=== PATIENT | female | born 2000 | race Caucasian/White ===

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

== ENCOUNTER 2021-01-06 14:16 | Emergency (ER) | payer OTHER, MEDICAID, SELFPAY ==
[2021-01-06 14:17] VITALS: BP 115/71; PULSE 79; RESP 15; TEMP 36.6; O2SAT 98; BMI 23.9
[2021-01-06 15:04] LABS: Absolute Lymphocyte Count 1.56 X10^3/uL (0.83-4.51); Absolute Neutrophil Count 2.7 X10^3/uL (2.0-7.7); Basophil# 0.03 X10^3/uL; Basophil% 0.6 % (0-1); Eosinophil# 0.03 X10^3/uL; Eosinophils% 0.6 % (0-5); Hematocrit 40.8 % (37-47); Hemoglobin 13.1 g/dL (12.0-15.0); Lymphocyte # 1.56 X10^3/ul (0.83-4.51); Lymphocyte % 32.6 % (19-41); Mean Corp Hgb Conc 32.1 g/dL (32-36); Mean Corpuscular Hgb 27.9 pg (27.0-32.0); Mean Platelet Vol. 10.3 fl (6.2-12.0); Monocyte# 0.44 X10^3/uL; Monocyte% 9.2 % (0-10); NRBC Flagged by Analyzer 0 % (0-5); Neutrophil # 2.72 X10^3/uL (2.7-7.7); Neutrophil % 56.8 % (47-70); Platelet Count 316 K/mm3 (150-450); RBC Distribution Width CV 14.5 % (11.6-14.6); RBC Distribution Width SD 46.3 fl (35.1-43.9); Red Blood Count 4.69 M/mm3 (4.2-5.4); White Blood Count 4.8 K/mm3 (4.4-11.0)
[2021-01-06 15:31] LABS: ALB/GLOB Ratio 1.2 RATIO (0.9-2.4); AST(SGOT) 17 U/L (15-37); Alanine Aminotransfer ALT/SGPT 24 U/L (13-56); Albumin, Serum 3.9 g/dL (3.2-5.0); Alkaline Phosphatase 48 U/L (45-117); Anion Gap 5 (5-15); BUN 13 mg/dL (7-18); BUN/Creat Ratio 16.3 RATIO (10-20); Chloride 109 mmol/L (98-107); EST Glomerular Filtration Rate 98 mL/min (>60); Est Glom Filt Rate - Afr Amer 119 mL/min (>60); Estimated Creatinine Clearance 97.67 ml/min; Globulin 3.3 g/dL (2.2-4.2); Glucose 89 mg/dL (74-106); Lipase 101 U/L (73-393); Protein, Total 7.2 g/dL (6.4-8.2); Sodium Level 140 mmol/L (136-145)
[2021-01-06 15:35] LABS: Bacteria 0 SEEN /hpf (None Seen); Color, Urine Straw (Yellow); Glucose, Dipstick Normal (Normal); Ketone-Dipstick Negative (Negative); Leukocyte Esterase-Dipstick Negative /ul (Negative); Nitrite-Dipstick Negative (Negative); Occult Blood-Urine Negative /ul (Negative); Protein-Dipstick 15 mg/dl (Negative); Red Blood Cells-Urine 0 SEEN /hpf (0-5); Urine Bilirubin Dipstick Negative (Negative); Urine Clarity Clear (Clear); Urine Urobilinogen Normal (Normal)
[2021-01-06 15:43] LABS: Internal QC Validated? YES +Cl - CLEAR BKGD; Pregnancy, Serum, hCG Quali. NEGATIVE Negative
[2021-01-06 15:44] LABS: Squamous Epithelial Cells - UA 0-5 SEEN /hpf (5-10); White Blood Cells 0-5 SEEN /hpf (0-5)
--- NOTE | 2021-01-06 15:44 | ED.VISSUMM ---
- ER Visit Summary Date of Service: 01/06/21 Chief Complaint: Abdominal pain History of Present Illness: The patient is a 20 F with no primary care physician. She reports she has abdominal pain began 3 days ago. Is gradually gotten worse. It is a continuous pain that waxes and wane. She describes it as a sharp, cramping, aching that is 10 of 10 at worst and 7-10 currently. Is worsened by movement or any food. She states that the food worsens it within 5 to 10 minutes. Is relieved by nothing. She denies any spicy or fatty food intolerance specifically. Patient reports has been nausea and vomited 2-3 times. No blood in her emesis. She reports she had 3 episodes of diarrhea. No blood in her stools or black tarry stools. No dysuria or frequency. Last menstrual period was 1 month ago. No vaginal bleeding or discharge. Patient denies sick contacts. Has not been camping out of the country. No possible bad food exposure. Does drink well water, but others at home do as well and they are not ill. No recent antibiotic use. Physical Examination: Vitals: Stable. Afebrile. General: Well-nourished and well-developed. Head: Normocephalic atraumatic. Neck: Supple, no lymphadenopathy. No JVD. Nontender. Cardiovascular: Regular rate and rhythm. No murmurs. Respiratory: No respiratory distress. Clear to auscultation bilaterally. Abdominal: Soft, mild diffuse tenderness palpation moderate epigastric tenderness, nondistended, normal bowel sounds. No guarding, rebound, or peritoneal signs. Back: Nontender. Extremities: Nontender, no edema. Skin: Normal color, no rash. Neurologic: Alert and oriented ?3. Cranial nerves II through XII are intact. Normal strength and sensation. Psych: Normal affect. Test Results: CBC is normal. Chem-7 shows a chloride of 109. LFTs are normal. Lipase is normal. test is negative. Urinalysis is negative for infection. Emergency Department Course and Treatment: Patient had an IV placed. She was given Toradol and Zofran IV. She was given a GI cocktail p.o. She is resting comfortably. Treatment Plan: Patient will be discharged with Zofran. [facility] 3 to 5 days if not improving. Return to the emergency department for any worsening symptoms. Disposition: To home in improved and stable condition. Impression: 1. Abdominal pain, uncertain cause. This note was generated with Dispatch dictation software. It may contain incorrect words, spelling, and punctuation that were not noted in review of the chart prior to signing ED Disposition - Plan for ED Patient: Instructions: ED Abdominal Pain Unkn Cause Fem Prescriptions: Ondansetron [Zofran Odt] 4 mg PO Q8H PRN PRN #10 tablet PRN Reason: Nausea Referrals: Madelyn Power [NON-STAFF] - 3-5 Days if not improving
[2021-01-06 15:45] LABS: Mucous, Urine RARE /hpf (<or=2+)
[2021-01-06] MEDS: Ketorolac 15 MG/ML Vial IV (15:47)
[2021-01-06] MEDS: Ondansetron 4 MG/2 ML Vial IV (15:48)
[2021-01-06] MEDS: Mag Hydrox/Al Hydrox/Simeth 30 ML UDC PO (15:48)
[2021-01-06 16:05] VITALS: PULSE 80; RESP 17; O2SAT 97
== END 2021-01-06 16:06 | disposition home or self-care (01) ==
PROVIDERS: Emergency Provider Emergency Medicine
DX: R10.9 Unspecified abdominal pain (principal); R11.2 Nausea with vomiting, unspecified; K21.9 Gastro-esophageal reflux disease without esophagitis; F32.9 Major depressive disorder, single episode, unspecified; Z79.899 Other long term (current) drug therapy
CPT/HCPCS: 80053; 81001; 83690; 84703; 85025; 96374; 96375; 99283; A4216; J2405

== ENCOUNTER → 2021-01-08 11:53 | Outpatient (CLI) | payer OTHER, MEDICAID, SELFPAY ==
[2021-01-06 14:17] VITALS: BMI 23.9
--- NOTE | 2021-01-08 11:56 | US_ITS ---
STUDY: ABDOMINAL ULTRASOUND REASON FOR EXAM: Female, 20 years old. PERSISTENT GENERALIZED ABD PAIN TECHNIQUE: Transabdominal ultrasound was performed with real-time and static luke scale imaging. TECHNICAL QUALITY: Adequate. COMPARISON: None. FINDINGS: Liver: The liver measures 14.5 cm. There is normal echogenicity of the liver. The bile ducts are within normal limits. There is hepatic color flow. The direction of portal flow is hepatopetal. There is no demonstrated mass lesion. Portal vein measurement: Gallbladder: Normal distended gallbladder. The gallbladder wall measures 2 mm. There is a negative sonographic Hart''s sign. There is no pericholecystic fluid. There are no gallstones. Common Bile Duct (C.B.D.): The common bile duct measures 2 mm. Pancreas: Normal size of the head, body and tail of the pancreas. There is normal echogenicity of the pancreas. There is no demonstrated pancreatic mass or cyst. Spleen: Normal size of the spleen. The spleen measures 9.6 cm. Right Kidney: Normal size of the right kidney. The right kidney measures 10.4 cm. Normal renal cortex. The right cortex measures 1.3 cm. There is no demonstrated renal mass or cyst. There is no right hydronephrosis. Left Kidney: Normal size of the left kidney. The left kidney measures 10.6 cm. Normal renal cortex. The left cortex measures 1.2 cm. There is no demonstrated renal mass or cyst. There is no left hydronephrosis. Aorta: No abdominal aortic aneurysm. I.V.C.: The IVC is patent. There is no ascites. US/Abdomen Complete IMPRESSION: Normal abdominal ultrasound examination. Electronically Signed: Mich Huntley MD at 13:40 EDT Tel , Service support ,
== END ==
PROVIDERS: PCP Pediatrics; Referring Provider Pediatrics; Visit Provider Pediatrics
DX: R10.84 Generalized abdominal pain (principal)
CPT/HCPCS: 76700

== ENCOUNTER 2021-01-08 12:53 | Emergency (ER) | payer OTHER, MEDICAID, SELFPAY ==
[2021-01-08 12:54] VITALS: BP 138/74; PULSE 79; RESP 16; TEMP 35.8; O2SAT 97; BMI 24.9
--- NOTE | 2021-01-08 13:36 | CT_ITS ---
STUDY: CT ABDOMEN AND PELVIS WITH CONTRAST REASON FOR EXAM: Female, 20 years old. abd pain -- IV PO Contrast RADIATION DOSAGE (If Supplied By Facility): CTDIvol = ( 13.58 ) mGy, DLP = ( 536.95 ) mGycm TECHNIQUE: Transaxial images were obtained from the dome of the diaphragm to the symphysis pubis with oral contrast. Oral and amp; IV Gastrografin and amp; 100mL Isovue-300 was administered. Sagittal and coronal images were reconstructed. Individualized dose optimization techniques were used for this CT. COMPARISON: 03/02/2020 FINDINGS: The visualized lung bases are unremarkable. The visualized portions of the heart are within normal limits. Normal liver. The gallbladder is contracted. Normal spleen. Normal pancreas. Normal bilateral adrenal glands. Normal right kidney. Normal left kidney. Normal visualized stomach. Normal small intestine. Normal colon. The appendix is visualized and appears normal. Normal abdominal aorta. Normal inferior vena cava. Normal retroperitoneum. Normal urinary bladder. Normal abdominal wall. Normal osseous structures. CT/Abdomen/Pelvis WITH Contrast IMPRESSION: Normal enhanced CT of the abdomen and pelvis. Electronically Signed: Mich Huntley MD at 16:15 EDT Tel , Service support ,
[2021-01-08] MEDS: Morphine 4 MG/ML Syringe IV ×2 (14:01→16:30)
[2021-01-08] MEDS: Ondansetron 4 MG/2 ML Vial IV (14:02)
[2021-01-08 14:03] LABS: Bacteria 0 SEEN /hpf (None Seen); Mucous, Urine 0 SEEN /hpf (<or=2+); Red Blood Cells-Urine 0 SEEN /hpf (0-5); White Blood Cells 0 SEEN /hpf (0-5)
[2021-01-08 14:03] LABS: Absolute Lymphocyte Count 2.17 X10^3/uL (0.83-4.51); Absolute Neutrophil Count 2.7 X10^3/uL (2.0-7.7); Basophil# 0.02 X10^3/uL; Basophil% 0.4 % (0-1); Eosinophil# 0.06 X10^3/uL; Eosinophils% 1.1 % (0-5); Hematocrit 45.3 % (37-47); Hemoglobin 14.7 g/dL (12.0-15.0); Lymphocyte # 2.17 X10^3/ul (0.83-4.51); Lymphocyte % 40.6 % (19-41); Mean Corp Hgb Conc 32.5 g/dL (32-36); Mean Corpuscular Hgb 28.4 pg (27.0-32.0); Mean Corpuscular Volume 87.5 fL (81-99); Mean Platelet Vol. 9.9 fl (6.2-12.0); Monocyte# 0.41 X10^3/uL; Monocyte% 7.7 % (0-10); NRBC Flagged by Analyzer 0 % (0-5); Neutrophil # 2.68 X10^3/uL (2.7-7.7); Platelet Count 345 K/mm3 (150-450); RBC Distribution Width CV 14.1 % (11.6-14.6); RBC Distribution Width SD 45.3 fl (35.1-43.9); Red Blood Count 5.18 M/mm3 (4.2-5.4); White Blood Count 5.4 K/mm3 (4.4-11.0)
[2021-01-08] MEDS: 0.9% Normal Saline 1,000 ML 1000 ML IV (14:03)
--- NOTE | 2021-01-08 14:14 | RAD_ITS ---
STUDY: X-RAY CHEST REASON FOR EXAM: Female, 20 years old. cough TECHNIQUE: Single AP portable view of the chest. COMPARISON: 03/03/2017 FINDINGS: The lungs are clear and expanded. There is no demonstrated pleural abnormality. Normal size heart. Normal mediastinum and brandon. Normal visualized pulmonary arteries. Normal visualized aortic arch and descending thoracic aorta. Normal visualized thoracic spine. Normal visualized ribs, clavicles, and shoulders. There is no demonstrated abnormality of the visualized soft tissue structures of the upper abdomen. RAD/Chest 1 View (Portable) IMPRESSION: Normal x-ray examination of the chest. Electronically Signed: Mich Huntley MD at 14:27 EDT Tel , Service support ,
[2021-01-08 14:16] LABS: Internal QC Validated? YES +Cl - CLEAR BKGD; Pregnancy, Urine Negative Negative
[2021-01-08 14:17] LABS: Color, Urine Yellow (Yellow); Glucose, Dipstick Normal (Normal); Ketone-Dipstick Negative (Negative); Leukocyte Esterase-Dipstick Negative /ul (Negative); Nitrite-Dipstick Negative (Negative); Occult Blood-Urine Negative /ul (Negative); Protein-Dipstick Negative (Negative); Specific Gravity, Urine 1.005 (1.002-1.030); Urine Bilirubin Dipstick Negative (Negative); Urine Clarity Clear (Clear); Urine Urobilinogen Normal (Normal)
[2021-01-08 14:17] LABS: ALB/GLOB Ratio 1.2 RATIO (0.9-2.4); AST(SGOT) 21 U/L (15-37); Alanine Aminotransfer ALT/SGPT 29 U/L (13-56); Albumin, Serum 4.4 g/dL (3.2-5.0); Alkaline Phosphatase 54 U/L (45-117); Anion Gap 6 (5-15); BUN 7 mg/dL (7-18); BUN/Creat Ratio 8.5 RATIO (10-20); Calcium,Total 9.4 mg/dL (8.5-10.1); Chloride 107 mmol/L (98-107); Creatinine, Serum 0.83 mg/dL (0.55-1.02); EST Glomerular Filtration Rate 94 mL/min (>60); Est Glom Filt Rate - Afr Amer 114 mL/min (>60); Estimated Creatinine Clearance 94.14 ml/min; Globulin 3.8 g/dL (2.2-4.2); Glucose 85 mg/dL (74-106); Lipase 81 U/L (73-393); Potassium 4.1 mmol/L (3.5-5.1); Protein, Total 8.2 g/dL (6.4-8.2); Sodium Level 141 mmol/L (136-145)
[2021-01-08 14:28] LABS: Squamous Epithelial Cells - UA 0-5 SEEN /hpf (5-10)
[2021-01-08 15:00] VITALS: BP 131/63; PULSE 74; RESP 18; O2SAT 98
--- NOTE | 2021-01-08 16:07 | ED.VIS.GEN ---
History of Present Illness Chief Complaint: Abd Pain Informant: Patient Onset: Days - 2 Narrative: Patient presents to ED after leaving radiology department for abdominal ultrasound ordered by her goat farmer yesterday. She was seen in the ED 2 days ago for nausea vomiting diarrhea along with abdominal pain. She reports after evaluation her nausea vomiting was improved however still had abdominal pain for which she saw her doctor yesterday. Ultrasound was ordered today. Reports after ultrasound she had increasing pain that is unbearable. Denies any current vomiting. No current diarrhea. States nausea with pain. States there is family history of Crohn's disease in her grandmother however reports was told is not the type that can be passed down genetically. She denies urinary symptoms currently on her menstrual period. Pain is to the left of mid abdomen. Denies trauma. Also states after leaving the image department cough had some sputum with mild streaks of blood. This was minimal. Denies sore throat or fevers. Denies dyspnea. Does admit to tobacco history. She reports she did see GI when she was younger however there has been no endoscopies. Prior similar symptoms: No Past Medical History - Allergies and Home Meds Allergies/Adverse Reactions: Allergies No Known Allergies Allergy (Verified 01/08/21 12:54) Primary Care Physician: Marcy Elder DO [Primary Care Provider] - Past Medical History: - - Anxiety, depression, irritable bowel syndrome Surgical History: no surgical history Smoking Status: Never smoker Physical Exam Vital Signs/Narrative: Vital Signs Temp Pulse Resp BP Pulse Ox 01/08/21 15:00 74 18 131/63 H 98 01/08/21 12:54 96.4 F L 79 16 138/74 H 97 Inital Vital Signs reviewed: Yes General: Well nourished, Well developed, No Acute Distress Head: Normocephalic, Atraumatic Eyes: Perrl, EOMI ENT: Moist mucous membranes, No rhinorrhea, - - No posterior pharyngeal erythema or bleeding. Airway patent. No stridor. Neck: Supple, Nontender Cardiovascular: Regular rate, Regular rhythm, No murmurs Respiratory: No distress, CTA bilaterally, Chest nontender Abdomen: Soft, Nondistended, Normal bowel sounds, - - Generalized tenderness abdomen, right lower quadrant with left lower quadrant, no guarding or rebound. Back: Nontender, Normal Inspection Extremities: Nontender, No edema Skin: Normal color, No rash Neurological: Alert, Oriented x3, Cranial nerves II-XII grossly intact, Normal Strength, Normal Sensation Psychological: Normal affect, Normal Mood Diagnostic/Tx/Re-eval Chest X-Ray - ED: 1 View, Read by ED Physician, Read by Radiologist, No Acute Disease Clinical Impression(s) from Imaging Studies Abdomen/Pelvis CT 01/08/21 13:36 IMPRESSION: Normal enhanced CT of the abdomen and pelvis. Electronically Signed: Mich Huntley MD at 16:15 EDT Tel , Service support , Chest X-Ray 01/08/21 14:14 IMPRESSION: Normal x-ray examination of the chest. Electronically Signed: Mich Huntley MD at 14:27 EDT Tel , Service support , Abnormal Lab Results 01/08/21 01/08/21 01/08/21 13:00 13:50 13:50 WBC 5.4 RBC 5.18 Hgb 14.7 Hct 45.3 MCV 87.5 MCH 28.4 MCHC 32.5 RDW Std Deviation 45.3 H RDW Coeff of Gwyn 14.1 Plt Count 345 MPV 9.9 Immature Gran % (Auto) 0.200 Neut % (Auto) 50.0 Lymph % (Auto) 40.6 Cook % (Auto) 7.7 Eos % (Auto) 1.1 Baso % (Auto) 0.4 Absolute Neuts (auto) 2.7 Absolute Lymphs (auto) 2.17 Nucleated RBC % 0 Sodium 141 Potassium 4.1 Chloride 107 Carbon Dioxide 28.0 Anion Gap 6 BUN 7 Creatinine 0.83 Estim Creat Clear Calc 94.14 Est GFR (MDRD) Af Amer 114 Est GFR (MDRD) Non-Af 94 BUN/Creatinine Ratio 8.5 L Glucose 85 Calcium 9.4 Total Bilirubin 1.00 AST 21 ALT 29 Alkaline Phosphatase 54 Total Protein 8.2 Albumin 4.4 Globulin 3.8 Albumin/Globulin Ratio 1.2 Lipase 81 Urine Color Yellow Urine Clarity Clear Urine pH 7.0 Ur Specific [place] 1.005 Urine Protein Negative Urine Glucose (UA) Normal Urine Ketones Negative Urine Occult Blood Negative Urine Nitrite Negative Urine Bilirubin Negative Urine Urobilinogen Normal Ur Leukocyte Esterase Negative Urine RBC 0 SEEN Urine WBC 0 SEEN Ur Squamous Epith Cells 0-5 SEEN Urine Bacteria 0 SEEN Urine Mucus 0 SEEN Urine Test Negative - Medical Decision Making Patient uncomfortable nonsurgical abdomen however tender left side right lower. Ultrasound report was pending from the department. However with increasing pain over 2 days work-up initiated. She had cough with slight hemoptysis with a tobacco history. She is in no respiratory distress. Denies any PE risk factors. Chest x-ray obtained which was negative. Low suspicion for any PEs. For abdominal pain abdominal labs are all normal urine was negative. Contrast CT scan with p.o. and IV contrast ordered due to family history of Crohn's disease. She is treated with pain medicines in the ED. Results had a normal appendix normal structures. Her ultrasound report also was normal. Reevaluated patient currently mother was present, reports her sister has abdominal symptoms and sees a pediatric GI in [place]. She is told she had lesions in her stomach, patient is on Prevacid however denies any melena hematochezia. She reports increasing stress. We will change her over to omeprazole and Carafate and as needed Bentyl. Discussed with mother patient make appointment with the pediatric GI due to her age still being 20 and will be seen by peds. They understand. Signs and symptom discussed return. All questions were answered. ED Disposition - Plan for ED Patient: Disposition: Home or Assisted Living Diagnosis: Abdominal pain Instructions: ED Unknown Causes of Abdominal ... Prescriptions: Dicyclomine HCl [Bentyl] 10 mg PO Q6H PRN PRN #20 capsule PRN Reason: abd pain Transmission Status: Pending to [facility] [id number] Sucralfate [Carafate] 1 gm PO 4X/DAY #60 tab Transmission Status: Pending to [facility]. Omeprazole 40 mg PO DAILY #30 capsule.dr Transmission Status: Pending to [facility] [employer] [facility]. Referrals: Marcy Elder DO [Primary Care Provider] - Additional Instructions: Take medications as prescribed. Would make appointment with family GI physician in [place] for further evaluation. Normal abdominal ultrasound performed as an outpatient. Normal CT scan abdomen pelvis with IV and oral contrast.Normal abdominal labs.
[2021-01-08 17:17] VITALS: PULSE 70; RESP 16; O2SAT 100
== END 2021-01-08 17:18 | disposition home or self-care (01) ==
PROVIDERS: Emergency Provider Emergency Medicine; PCP Pediatrics
DX: R10.84 Generalized abdominal pain (principal); K58.9 Irritable bowel syndrome, unspecified; F32.9 Major depressive disorder, single episode, unspecified; F41.9 Anxiety disorder, unspecified; Z79.899 Other long term (current) drug therapy; Z83.79 Family history of other diseases of the digestive system
CPT/HCPCS: 71045; 74177; 80053; 81001; 81025; 83690; 85025; 96361; 96374; 96375; 96376; 99284; J7030; Q9967; A4216; J2405

== ENCOUNTER 2021-04-14 14:26 | Emergency (ER) | payer OTHER, MEDICAID, SELFPAY ==
[2021-04-14 14:27] VITALS: BP 107/70; PULSE 80; RESP 16; TEMP 36.5; O2SAT 98; BMI 23.3
--- NOTE | 2021-04-14 16:04 | EX.ED.DYSGE1 ---
HPI History of Present Illness Chief Complaint: Abd Pain Informant: patient Narrative Narrative: Patient is a 20-year-old female who presents to the emergency department for an episode of spitting up blood. She states that she is currently being treated for gastric ulcers. She was a started on omeprazole 2 days prior. She had an EGD performed a few weeks ago and is waiting on pathology reports. She states that she had an episode of dry heaving this morning which is not uncommon for her in the morning says she does get acid reflux severely. After the dry heaving episode she spit up a small amount of bright red blood. She has not had any repeat episodes since. She denies any significant abdominal pain past her baseline. She is not any blood or black tarry stools. She is feeling better at this time. No chest pain, shortness of breath. No lightheadedness. She denies taking any NSAID. She does take Tylenol. [facility] Medical History (Updated 04/14/21 @ 16:[address] Saud Pandya DO) Anxiety Depression GERD (gastroesophageal reflux disease) IBS (irritable bowel syndrome) Stomach ulcer Home Medications loratadine 10 mg PO DAILY 11/10/13 [History Last Taken Unknown] fluoxetine 30 mg PO DAILY 03/03/17 [History Last Taken Unknown] lansoprazole 15 mg PO DAILY 06/27/19 [History Last Taken Unknown] hydroxyzine pamoate 1 - 2 cap PO TID PRN PRN #14 cap 05/12/20 [Rx Last Taken Unknown] ondansetron 4 mg PO Q8H PRN PRN #10 tablet 01/06/21 [Rx Last Taken Unknown] dicyclomine 10 mg PO Q6H PRN PRN #20 capsule 01/08/21 [Rx Last Taken Unknown] omeprazole 40 mg PO DAILY #30 capsule. 01/08/21 [Rx Last Taken Unknown] sucralfate 1 gm PO 4X/DAY #60 tab 01/08/21 [Rx Last Taken Unknown] Allergy/AdvReac Type Severity Reaction Status Date / Time No Known Allergies Allergy Verified 04/14/21 14:32 Social History Smoking Status: Current some day smoker tobacco type: e-cigarettes ROS ROS ED Constitutional Constitutional ED: Denies chills or fever(s) Eyes Eyes: Denies change in vision ENT ENT ED: Denies epistaxis or rhinorrhea Cardiovascular Cardiovascular: Denies chest pain or palpitations Respiratory/Chest Respiratory/Chest: Denies cough, dyspnea or dyspnea on exertion Gastrointestinal Gastrointestinal: Reports abdominal pain, nausea and vomiting; Denies constipation, diarrhea or melena Genitourinary Genitourinary ED: Denies dysuria, hematuria or urinary frequency Musculoskeletal Musculoskeletal: Denies back pain or neck pain Integumentary Denies rash Neurologic Neurologic: Denies dizziness, headache(s) or weakness EXAM Physical Exam Const Vital Signs: 04/14/21 14:27 Temperature 97.7 F L Temperature Source Temporal Pulse Rate 80 Respiratory Rate 16 Blood Pressure 107/70 Blood Pressure Mean 82 Pulse Ox 98 Oxygen Delivery Method Room Air Positive well nourished and well developed General Appearance ED: well developed and NAD HEENT Reports normocephalic, head/scalp atraumatic and moist mucous membranes Eyes PERRL and EOMs intact bilaterally Neck supple General: Negative for tenderness Chest Wall inspection of chest normal Resp normal respiratory effort and clear to auscultation bilaterally Auscultation: Negative for rales, rhonchi or wheezes Cardio regular rate, regular rhythm and no murmurs GI normal to inspection, nondistended, normoactive bowel sounds GI Narrative: Diffuse, mild tenderness. Palpation: soft; Negative for guarding or rebound tenderness present Back/Spine no CVA tenderness Extremity normal to inspection General Extremety ED: Negative for edema or tenderness General Extremity: Negative for edema Neuro no sensory deficits noted Sensorium / Orientation: alert Motor Exam: strength 5/5 throughout Psych mental status grossly normal Skin no rashes or lesions noted MDM MDM MDM Narrative Medical decision making narrative: Patient presents the ED for an episode of dry heaving and then spitting up bright red blood afterward. On arrival to the ED vital signs within normal limits. She is in no acute distress. Besides mild tenderness diffusely to her abdomen she is a benign physical exam. I believe patient most likely had a Ranjana-Alexandra tears with the retching. She is feeling better at this time. She was just recently started on omeprazole and does have a GI doctor she is following with. I did offer basic lab work but she is refusing at this time. She states that she just wants a work excuse. This will be provided to her. She is to follow-up with her GI specialist. If she has any repeat episodes, develops melena, any other significant pain she needs to return back to the ED. She understands and is agreeable with plan. Discharged home in stable condition. All questions are answered. Discharge Plan Triage Chief Complaint: Abd Pain Other Complaint: GI Bleed ED Provider: Saud Pandya Dx/Rx/DC Orders Clinical Impression: Vomiting Instructions: Ranjana-Alexandra Tear Prescriptions: No Action loratadine 10 MG tablet 10 mg PO DAILY RF: 0 fluoxetine 20 MG capsule 30 mg PO DAILY RF: 0 lansoprazole 30 MG capsule 15 mg PO DAILY RF: 0 hydroxyzine pamoate 25 MG capsule 1 - 2 cap PO TID PRN PRN (Reason: Anxiety) Qty: 14 RF: 0 ondansetron 4 MG tablet 4 mg PO Q8H PRN PRN (Reason: Nausea) Qty: 10 RF: 0 sucralfate 1 GM tablet 1 gm PO 4X/DAY Qty: 60 RF: 0 omeprazole 40 MG capsule,delayed release(DR/EC) 40 mg PO DAILY Qty: 30 RF: 0 dicyclomine 10 MG capsule 10 mg PO Q6H PRN PRN (Reason: abd pain) Qty: 20 RF: 0 Primary Care Provider: Marcy Elder Referrals: Marcy Elder DO [Primary Care Provider] - 3-5 Days Disposition Disposition: Home, Self Care
== END 2021-04-14 16:13 | disposition home or self-care (01) ==
LOC: ED 16:07
PROVIDERS: Emergency Provider Emergency Medicine; PCP Pediatrics
DX: R11.10 Vomiting, unspecified (principal); K58.9 Irritable bowel syndrome, unspecified; K25.9 Gastric ulcer, unspecified as acute or chronic, without hemorrhage or perforation; K21.9 Gastro-esophageal reflux disease without esophagitis; F32.9 Major depressive disorder, single episode, unspecified; F41.9 Anxiety disorder, unspecified; F17.210 Nicotine dependence, cigarettes, uncomplicated; Z79.899 Other long term (current) drug therapy
CPT/HCPCS: 99282

== ENCOUNTER 2021-04-17 15:26 | Emergency (ER) | payer OTHER, MEDICAID, SELFPAY ==
[2021-04-17 15:27] VITALS: BP 118/73; PULSE 83; RESP 16; TEMP 36.3; O2SAT 97; BMI 21.9
--- NOTE | 2021-04-17 16:20 | EDS_ITS ---
HPI HPI - GI History of Present Illness Chief Complaint: Abd Pain Narrative Narrative: 20-year-old female with history of IBS presenting with diffuse crampy abdominal pain. She states started her menstrual cycle today and states that now she has diffuse crampy abdominal pain. Patient was seen in the ED 2 days ago with similar symptoms and had her pain and nausea controlled and was sent home. At that point she was diagnosed with Ranjana-Alexandra tears. She is not really complaining of the nausea and vomiting is much as diffuse crampy pain today. She has not had fever or chills. She denies dysuria hematuria. She denies constipation but admits to diarrhea. Patient has history of peptic ulcer disease as well as [facility] Medical History Anxiety Depression GERD (gastroesophageal reflux disease) IBS (irritable bowel syndrome) Stomach ulcer Home Medications loratadine 10 mg PO DAILY 11/10/13 [History Last Taken Unknown] fluoxetine 30 mg PO DAILY 03/03/17 [History Last Taken Unknown] lansoprazole 15 mg PO DAILY 06/27/19 [History Last Taken Unknown] hydroxyzine pamoate 1 - 2 cap PO TID PRN PRN #14 cap 05/12/20 [Rx Last Taken Unknown] ondansetron 4 mg PO Q8H PRN PRN #10 tablet 01/06/21 [Rx Last Taken Unknown] dicyclomine 10 mg PO Q6H PRN PRN #20 capsule 01/08/21 [Rx Last Taken Unknown] omeprazole 40 mg PO DAILY #30 capsule. 01/08/21 [Rx Last Taken Unknown] sucralfate 1 gm PO 4X/DAY #60 tab 01/08/21 [Rx Last Taken Unknown] Allergy/AdvReac Type Severity Reaction Status Date / Time No Known Allergies Allergy Verified 04/17/21 15:27 Social History Smoking Status: Current some day smoker tobacco type: e-cigarettes ROS ROS ED Constitutional Constitutional ED: Denies fever(s), subjective or sweats ENT ENT ED: Denies rhinorrhea or sore throat Cardiovascular Cardiovascular: Denies chest pain or palpitations Respiratory/Chest Respiratory/Chest: Denies cough or dyspnea Gastrointestinal Gastrointestinal: Reports abdominal pain, diarrhea and nausea Genitourinary Genitourinary ED: Denies dysuria or hematuria Musculoskeletal Musculoskeletal: Denies arthralgias, back pain, myalgias or neck pain Integumentary Denies abscess or rash Neurologic Neurologic: Denies headache(s) or paresthesias EXAM Physical Exam Const Vital Signs: 04/17/21 15:27 04/17/21 19:36 Temperature 97.3 F L Temperature Source Temporal Pulse Rate 83 59 L Respiratory Rate 16 16 Blood Pressure 118/73 116/68 Blood Pressure Mean 88 84 Pulse Ox 97 100 Oxygen Delivery Method Room Air Room Air Positive well nourished General Appearance ED: NAD HEENT Reports moist mucous membranes normocephalic and atraumatic Eyes PERRL and EOMs intact bilaterally General Eye ED: Negative for scleral icterus Resp normal respiratory effort and clear to auscultation bilaterally Cardio regular rate and regular rhythm GI non-distended GI Narrative: Diffuse generalized tenderness to palpation. Abdomen is nonperitoneal Palpation: soft Back/Spine no CVA tenderness Neuro Sensorium / Orientation: alert, oriented to person, oriented to place and oriented to time Psych mental status grossly normal Attitude: agitated Mood & Affect: tearful Skin Lesions: no lesions Rashes: no rashes MDM MDM MDM Narrative Medical decision making narrative: Patient presenting with diffuse crampy abdominal pain as well as epigastric pain. Patient states that she had recent endoscopy and does not know the results for this. She was seen in the ED previously been diagnosed with Ranjana-Alexandra tears. Patient states that she did improve and then got worse again. Patient's lab work today shows a white blood cell count of 6.6, hemoglobin 14.9, hematocrit already 5.7, platelets 286. Renal function and electrolytes are normal. Patient was initially given morphine and Zofran and she did have return of some of her pain in the epigastri c region. We did discuss possibly doing imaging versus treating with a GI cocktail and seeing how she does. She did get a GI cocktail and felt improved. At this point she feels like she can go home. I do not believe she needs any imaging. She does need to follow-up with her GI doctor to get the results of her endoscopy and biopsies. Patient has medication at home. She will be discharged home in stable condition. Impression: 1. Abdominal pain 2. History of IBS 3. History of gastric ulcers Lab Data Labs: Laboratory Results - last 24 hr 04/17/21 04/17/21 04/17/21 16:28 16:35 16:35 WBC 6.6 RBC 5.32 Hgb 14.9 Hct 45.7 MCV 85.9 MCH 28.0 MCHC 32.6 RDW Std Deviation 41.9 RDW Coeff of Gwyn 13.4 Plt Count 286 MPV 10.0 Immature Gran % (Auto) 0.200 Neut % (Auto) 69.2 Lymph % (Auto) 21.1 [place] % (Auto) 8.9 Eos % (Auto) 0.3 Baso % (Auto) 0.3 Absolute Neuts (auto) 4.6 Absolute Lymphs (auto) 1.40 Nucleated RBC % 0 Sodium 139 Potassium 3.7 Chloride 106 Carbon Dioxide 26.0 Anion Gap 7 BUN 9 Creatinine 0.76 Estim Creat Clear Calc 102.81 Est GFR (MDRD) Af Amer 125 Est GFR (MDRD) Non-Af 104 BUN/Creatinine Ratio 11.9 Glucose 80 Calcium 9.2 Total Bilirubin 0.70 Direct Bilirubin 0.17 AST 15 ALT 23 Alkaline Phosphatase 50 Total Protein 8.4 H Albumin 4.5 Globulin 3.9 Albumin/Globulin Ratio 1.2 Urine Color Red Urine Clarity Turbid Urine pH 5.0 Ur Specific [place] 1.025 Urine Protein 500 H Urine Glucose (UA) Normal Urine Ketones 150 A* Urine Occult Blood 250 H Urine Nitrite Negative Urine Bilirubin Negative Urine Urobilinogen Normal Ur Leukocyte Esterase 100 H Urine RBC > 100 SEEN Urine WBC 10-25 SEEN Ur Squamous Epith Cells 0-5 SEEN Urine Bacteria RARE Urine Mucus 0 SEEN Urine Test Negative Discharge Plan Triage Chief Complaint: Abd Pain ED Provider: Cam Marie Dx/Rx/DC Orders Instructions: ED Abdominal Pain Unkn Cause Fem, ED PUD Prescriptions: No Action loratadine 10 MG tablet 10 mg PO DAILY RF: 0 fluoxetine 20 MG capsule 30 mg PO DAILY RF: 0 lansoprazole 30 MG capsule 15 mg PO DAILY RF: 0 hydroxyzine pamoate 25 MG capsule 1 - 2 cap PO TID PRN PRN (Reason: Anxiety) Qty: 14 RF: 0 ondansetron 4 MG tablet 4 mg PO Q8H PRN PRN (Reason: Nausea) Qty: 10 RF: 0 sucralfate 1 GM tablet 1 gm PO 4X/DAY Qty: 60 RF: 0 omeprazole 40 MG capsule,delayed release(DR/EC) 40 mg PO DAILY Qty: 30 RF: 0 dicyclomine 10 MG capsule 10 mg PO Q6H PRN PRN (Reason: abd pain) Qty: 20 RF: 0 Primary Care Provider: Marcy Elder Referrals: Marcy Elder DO [Primary Care Provider] - Disposition Disposition: Home, Self Care
[2021-04-17] MEDS: Ondansetron 4 MG/2 ML Vial IV (16:36)
[2021-04-17] MEDS: 0.9% Normal Saline 1,000 ML 1000 ML IV (16:36)
[2021-04-17] MEDS: Morphine 4 MG/ML Syringe IV (16:36)
[2021-04-17 16:43] LABS: Mucous, Urine 0 SEEN /hpf (<or=2+)
[2021-04-17 16:47] LABS: Color, Urine Red (Yellow); Glucose, Dipstick Normal (Normal); Leukocyte Esterase-Dipstick 100 /ul (Negative); Nitrite-Dipstick Negative (Negative); Occult Blood-Urine 250 /ul (Negative); Protein-Dipstick 500 mg/dl (Negative); Specific Gravity, Urine 1.025 (1.002-1.030); Urine Bilirubin Dipstick Negative (Negative); Urine Clarity Turbid (Clear); Urine Urobilinogen Normal (Normal)
[2021-04-17 16:53] LABS: Absolute Neutrophil Count 4.6 X10^3/uL (2.0-7.7); Basophil# 0.02 X10^3/uL; Basophil% 0.3 % (0-1); Eosinophil# 0.02 X10^3/uL; Eosinophils% 0.3 % (0-5); Hematocrit 45.7 % (37-47); Hemoglobin 14.9 g/dL (12.0-15.0); Lymphocyte % 21.1 % (19-41); Mean Corp Hgb Conc 32.6 g/dL (32-36); Mean Corpuscular Volume 85.9 fL (81-99); Monocyte# 0.59 X10^3/uL; Monocyte% 8.9 % (0-10); NRBC Flagged by Analyzer 0 % (0-5); Neutrophil # 4.58 X10^3/uL (2.7-7.7); Neutrophil % 69.2 % (47-70); Platelet Count 286 K/mm3 (150-450); RBC Distribution Width CV 13.4 % (11.6-14.6); RBC Distribution Width SD 41.9 fl (35.1-43.9); Red Blood Count 5.32 M/mm3 (4.2-5.4); White Blood Count 6.6 K/mm3 (4.4-11.0)
[2021-04-17 16:56] LABS: Ketone-Dipstick 150 mg/dl (Negative)
[2021-04-17 16:57] LABS: Bacteria RARE /hpf (None Seen); Red Blood Cells-Urine > 100 SEEN /hpf (0-5); Squamous Epithelial Cells - UA 0-5 SEEN /hpf (5-10); White Blood Cells 10-25 SEEN /hpf (0-5)
[2021-04-17 17:02] LABS: Internal QC Validated? YES +Cl - CLEAR BKGD; Pregnancy, Urine Negative Negative
[2021-04-17 17:05] LABS: ALB/GLOB Ratio 1.2 RATIO (0.9-2.4); AST(SGOT) 15 U/L (15-37); Alanine Aminotransfer ALT/SGPT 23 U/L (13-56); Albumin, Serum 4.5 g/dL (3.2-5.0); Alkaline Phosphatase 50 U/L (45-117); Anion Gap 7 (5-15); BUN 9 mg/dL (7-18); BUN/Creat Ratio 11.9 RATIO (10-20); Bilirubin, Direct 0.17 mg/dL (0.00-0.30); Calcium,Total 9.2 mg/dL (8.5-10.1); Chloride 106 mmol/L (98-107); Creatinine, Serum 0.76 mg/dL (0.55-1.02); EST Glomerular Filtration Rate 104 mL/min (>60); Est Glom Filt Rate - Afr Amer 125 mL/min (>60); Estimated Creatinine Clearance 102.81 ml/min; Globulin 3.9 g/dL (2.2-4.2); Glucose 80 mg/dL (74-106); Potassium 3.7 mmol/L (3.5-5.1); Protein, Total 8.4 g/dL (6.4-8.2); Sodium Level 139 mmol/L (136-145)
[2021-04-17 19:36] VITALS: BP 116/68; PULSE 59; RESP 16; O2SAT 100
[2021-04-17] MEDS: Mag Hydrox/Al Hydrox/Simeth 30 ML UDC PO (21:01)
== END 2021-04-17 21:31 | disposition home or self-care (01) ==
PROVIDERS: Emergency Provider Student in an Organized Health Care Education/Training Program; PCP Pediatrics
DX: K58.0 Irritable bowel syndrome with diarrhea (principal); K25.9 Gastric ulcer, unspecified as acute or chronic, without hemorrhage or perforation; K21.9 Gastro-esophageal reflux disease without esophagitis; F41.9 Anxiety disorder, unspecified; F17.290 Nicotine dependence, other tobacco product, uncomplicated; Z79.899 Other long term (current) drug therapy
CPT/HCPCS: 80053; 80076; 81001; 81025; 85025; 96361; 96374; 96375; 99284; J7030; A4216; J2405

== ENCOUNTER 2024-08-10 09:06 | Emergency (ER) | payer OTHER, SELFPAY ==
[2024-08-10 09:07] VITALS: BP 142/91; PULSE 94; RESP 15; TEMP 35.8; O2SAT 98; BMI 23.5
--- NOTE | 2024-08-10 09:19 | ED.VIS.FEGU ---
HPI HPI - Female History of Present Illness Chief Complaint: Vag Bleeding Informant: patient Narrative Narrative: Referred from urgent care due to vaginal bleeding. Patient states that her normal menstrual cycle 2 days ago. She has heavy periods in the beginning goes a pad every 2-3 hours. That is typical for her. She is normal pelvic cramping. This morning woke up heavy bleeding that soaked through her clothing. She went to the bathroom blood was dripping out. There was a couple clots. She not on any blood thinners. She panicked secondary to this being new, she called her mom told to go to urgent care who sent her here. She is sexually active single partner for last 4 years with contraception. She denies any chance of . Denies urinary symptoms. Denies ever having a Pap smear. [facility] Medical History IBS (irritable bowel syndrome) Depression Anxiety Stomach ulcer GERD (gastroesophageal reflux disease) Home Medications ?Medication ?Instructions ?Recorded ?Last Taken ?Type loratadine 10 mg tablet 10 mg PO DAILY 11/10/13 Unknown History fluoxetine 20 mg capsule 30 mg PO DAILY 03/03/17 Unknown History lansoprazole 30 mg capsule,delayed 15 mg PO DAILY 06/27/19 Unknown History release hydroxyzine pamoate 25 mg capsule 1 - 2 cap PO TID PRN PRN Anxiety 05/12/20 Unknown Rx #14 caps ondansetron 4 mg disintegrating 4 mg PO Q8H PRN PRN Nausea #10 tabs 01/06/21 Unknown Rx tablet dicyclomine 10 mg capsule 10 mg PO Q6H PRN PRN abd pain #20 01/08/21 Unknown Rx CAPSULES omeprazole 40 mg capsule,delayed 40 mg PO DAILY ##30 01/08/21 Unknown Rx release sucralfate 1 gram tablet 1 gm PO 4X/DAY #60 TABLETS 01/08/21 Unknown Rx Allergy/AdvReac Type Severity Reaction Status Date / Time No Known Allergies Allergy Verified 08/10/24 09:07 Social History Smoking Status: Current some day smoker tobacco type: e-cigarettes ROS ROS ED Constitutional Constitutional ED: Denies chills, fever(s) or sweats Eyes Eyes: Denies change in vision ENT ENT ED: Denies dysphagia or sore throat Cardiovascular Cardiovascular: Denies chest pain, leg edema, palpitations or racing heartbeat Respiratory/Chest Respiratory/Chest: Denies cough, dyspnea or dyspnea on exertion Gastrointestinal Gastrointestinal: Denies abdominal pain, diarrhea, nausea or vomiting Genitourinary Genitourinary ED: Reports other Details: Vaginal bleeding, pelvic cramping ; Denies dysuria, hematuria or urinary frequency Musculoskeletal Musculoskeletal: Denies back pain, extremity pain or neck pain Integumentary Denies rash or wounds Neurologic Neurologic: Denies headache(s), paresthesias or weakness EXAM Physical Exam Const Vital Signs: 08/10/24 09:07 08/10/24 11:21 Temperature 96.4 F L 98.5 F Temperature Source Temporal Pulse Rate 94 82 Respiratory Rate 15 16 Blood Pressure 142/91 H 124/73 H Blood Pressure Mean 108 90 Pulse Ox 98 98 Oxygen Delivery Method Room Air Positive well nourished and well developed General Appearance ED: well developed and NAD HEENT Reports moist mucous membranes normocephalic and atraumatic Eyes EOMs intact bilaterally and conjunctivae normal General Eye ED: Yes normal appearance of both eyes; Negative for pale conjunctiva Neck no lymphadenopathy and supple General: Negative for tenderness Chest Wall Chest: Negative for tenderness Resp normal respiratory effort and normal air movement Effort and Inspection: symmetric chest movement; Negative for respiratory distress Cardio regular rate, regular rhythm and no murmurs Peripheral Pulses: pulses 2+ throughout GI normal to inspection, nondistended, normoactive bowel sounds and non-tender Palpation: Negative for guarding or rebound tenderness present Back/Spine no CVA tenderness and no thoracic nor lumbar tenderness Extremity normal to inspection General Extremety ED: Negative for edema or tenderness General Extremity: Negative for edema Neuro oriented x3 and no sensory deficits noted Sensorium / Orientation: awake and alert Skin no rashes or lesions noted and no wounds MDM MDM MDM Narrative Medical decision making narrative: Interventions / MDM: Differential diagnosis: Dysfunctional uterine bleeding, menorrhagia Diagnosis considered but do not suspect: however hCG negative My EKG interpretation: N/A Imaging independently reviewed and interpreted by myself: N/A External documents reviewed: N/A Test considered but not ordered:N/A ED course: 919:after evaluation the patient discussed likely dysfunctional uterine bleeding she is currently on her menstrual period. She is never had a Pap smear. Clinically she is not having pallor of conjunctiva for concerns for ischemic anemia. I discussed obtaining blood work pelvic exam as she has never had one to evaluate for any structural abnormalities. Nursing was in the room. At this time she wanted to discuss with her mother on the phone if she wants testing in the ER. 0940: Patient spoke with her mother, agreed to pursue with pelvic exam and swabs. Will add urine hCG. 1027: Pelvic exam no significant bleeding mild blood at the cervical os there is no masses or abnormal structures. hCG negative. On reevaluation patient spoke with mother requesting a UA. She denies any dysuria. Urine is in the lab. This will be added. 1110: Urine negative for infection. Trichomonas negative. Pending GC and chlamydia. She is low risk for any concerns with this. She reassured on findings. She is given follow-up with gynecology as an outpatient she will monitor the bleeding. At this time do not feel image studies are necessary. All questions were answered. Re-evaluation: stable Disposition discussed with patient/family/significant other: Patient Case discussed with consulting clinician: N/A This note was generated with [employer] dictation software. It may contain incorrect words, spelling, and punctuation that were not noted in checking the note before signing. Lab Data Labs: Laboratory Results - last 24 hr 08/10/24 09:40 Urine Color Yellow Urine Clarity Clear Urine pH 6.5 Ur Specific [place] 1.015 Urine Protein 15 H Urine Glucose (UA) Normal Urine Ketones Negative Urine Occult Blood 50 H Urine Nitrite Negative Urine Bilirubin Negative Urine Urobilinogen Normal Ur Leukocyte Esterase Negative Urine RBC 0 SEEN Urine WBC 0-5 SEEN Ur Squamous Epith Cells 0-5 SEEN Urine Bacteria RARE Urine Mucus 0 SEEN Urine Test Negative Discharge Plan Triage Chief Complaint: Vag Bleeding ED Provider: Tono Schuster Dx/Rx/DC Orders Clinical Impression: Menorrhagia, Dysfunctional uterine bleeding Instructions: ED Dysfunctional Uterine Bleeding, ED MENSTRUAL CRAMPING Prescriptions: No Action loratadine 10 MG tablet 10 mg PO DAILY fluoxetine 20 MG capsule 30 mg PO DAILY lansoprazole 30 MG capsule 15 mg PO DAILY hydroxyzine pamoate 25 MG capsule 1 - 2 cap PO TID PRN PRN (Reason: Anxiety) Qty: 14 0RF ondansetron 4 MG tablet 4 mg PO Q8H PRN PRN (Reason: Nausea) Qty: 10 0RF sucralfate 1 GM tablet 1 gm PO 4X/DAY Qty: 60 0RF omeprazole 40 MG capsule,delayed release(DR/EC) 40 mg PO DAILY Qty: 30 0RF dicyclomine 10 MG capsule 10 mg PO Q6H PRN PRN (Reason: abd pain) Qty: 20 0RF Stand Alone Forms: ED Work / School Excuse Primary Care Provider: Care Physician,No Primary Referrals: Marcy Elder DO [Non-Staff] - Edel Silva MD [Med Staff - Active Staff] - 1 Week if not improving Activity Restrictions/Additional Instructions: Pelvic exam with normal structures. Trichomonas negative. GC chlamydia pending. hCG and urine negative. Monitor symptoms and follow-up with gynecology. Print Language: Scottish Disposition Disposition: Home, Self Care Discharge Date/Time: 08/10/24 11:22
[2024-08-10 10:05] LABS: Internal QC Validated? YES +Cl - CLEAR BKGD; Pregnancy, Urine Negative Negative
[2024-08-10 10:35] LABS: Mucous, Urine 0 SEEN /hpf (<or=2+); Red Blood Cells-Urine 0 SEEN /hpf (0-5)
[2024-08-10 10:51] LABS: Color, Urine Yellow (Yellow); Glucose, Dipstick Normal (Normal); Ketone-Dipstick Negative (Negative); Leukocyte Esterase-Dipstick Negative /ul (Negative); Nitrite-Dipstick Negative (Negative); Occult Blood-Urine 50 /ul (Negative); Protein-Dipstick 15 mg/dl (Negative); Specific Gravity, Urine 1.015 (1.002-1.030); Urine Bilirubin Dipstick Negative (Negative); Urine Clarity Clear (Clear); Urine Urobilinogen Normal (Normal); Urine pH 6.5 (5.0 - 8.0)
[2024-08-10 11:04] LABS: Squamous Epithelial Cells - UA 0-5 SEEN /hpf (5-10)
[2024-08-10 11:05] LABS: White Blood Cells 0-5 SEEN /hpf (0-5)
[2024-08-10 11:06] LABS: Bacteria RARE /hpf (None Seen)
[2024-08-10 11:21] VITALS: BP 124/73; PULSE 82; RESP 16; TEMP 36.9; O2SAT 98
== END 2024-08-10 11:22 | disposition home or self-care (01) ==
PROVIDERS: Emergency Provider Emergency Medicine; Visit Provider Emergency Medicine
DX: N93.8 Other specified abnormal uterine and vaginal bleeding (principal); N92.0 Excessive and frequent menstruation with regular cycle; Z11.3 Encounter for screening for infections with a predominantly sexual mode of transmission; F17.290 Nicotine dependence, other tobacco product, uncomplicated
CPT/HCPCS: 81001; 81025; 87210; 87491; 87591; 99282; A4216